=== PATIENT | female | born 1955 | race Caucasian/White ===

== ENCOUNTER 2019-02-25 13:37 | Emergency (ER) | payer MEDICARE ==
[2019-02-25 13:44] VITALS: BP 94/58
--- NOTE | 2019-02-25 13:52 | UC ---
Abdominal Pain Female HPI - HPI Summary HPI Summary: Patient presents with for vomiting and abdominal pain x5 days. She states she thinks she may have food poisoning from eating shrimp at the [employer] last Friday four hours before her symptoms started. Patient states her abdominal pain started first, which she described as a diffuse pain throughout her entire abdomen, front to back. She is unable to describe it but rates it as 8/10 initially and today is 5/10. She said the first three days she was vomiting "every half hour." Notes her vomiting stopped on Friday but she felt nauseous again yesterday, which was accompanied by chills. No further vomiting. Notes one episode of diarrhea last night. Otherwise normal BMs, just smaller. Has been unable to eat much other than watermelon, crackers, and sips of water since onset of symptoms. Notes fatigue. Denies fever. Denies constipation. Denies shortness of breath, wheezing, or difficulty breathing. Denies any abdominal surgeries. Denies taking any medications other than those for her diabetes. - History of Current Complaint Chief Complaint: UCAbdominalPain Stated Complaint: VOMITING Time Seen by Provider: 02/25/19 13:51 Hx Obtained From: Patient, Family/Impregnator - Onset/Duration: Lasting Days Timing: Constant Severity Initially: Severe Severity Currently: Moderate Pain Intensity: 6 Pain Scale Used: 0-10 Numeric Location: Diffuse Character: Unable to describe Aggravating Factor(s): Nothing Alleviating Factor(s): Nothing Allergies/Adverse Reactions: Allergies Allergy/AdvReac Type Severity Reaction Status Date / Time brimonidine [From Alphagan P] Allergy eye Verified 02/25/19 14:44 irritaion pilocarpine Allergy migraine Verified 02/25/19 14:44 ramipril Allergy Coughing Verified 02/25/19 14:44 PMH/Surg Hx/FS Hx/Imm Hx Endocrine History: Diabetes - Surgical History Surgical History: Yes Surgery Procedure, Year, and Place: 2004-TRABECU[place]OMIES [place] EYE[place] [place]. 2004- LEFT EYE [facility]- [facility]. 2011-CATARACT EXTRACTION BOTH EYES- [facility] [place]. 2011- [facility]RECTOMY RIGHT EYE- [facility]. RIGHT EYE 08/2015, [facility] [place]ABECULECTOMIE - Family History Known Family History: Positive: Unknown - Social History Alcohol Use: None Alcohol Amount: 2 ER WEEK Substance Use Type: None Smoking Status (MU): Never Smoked Tobacco Have You Smoked in the Last Year: No Review of Systems All Other Systems Reviewed And Are Negative: No Constitutional: Positive: Chills, Fatigue. Negative: Fever Eyes: Positive: Negative ENT: Positive: Negative Respiratory: Positive: Negative Cardiovascular: Positive: Negative Gastrointestinal: Positive: Abdominal Pain, Vomiting, Diarrhea, Nausea Genitourinary: Positive: Negative. Negative: Dysuria, Hematuria, Frequency, Urgency Neurological: Negative: Headache Physical Exam Triage Information Reviewed: Yes Appearance: Obese, Other: - appears fatigued Vital Signs: Initial Vital Signs Temp 98 F 02/25/19 13:41 Pulse 110 02/25/19 13:41 Resp 20 02/25/19 13:41 BP 94/58 02/25/19 13:41 Pulse Ox 99 02/25/19 13:41 Vital Signs Reviewed: Yes Eyes: Positive: Conjunctiva Clear Respiratory Exam: Normal Respiratory: Positive: Lungs clear, Normal breath sounds, No respiratory distress, No accessory muscle use Cardiovascular Exam: Normal Cardiovascular: Positive: Tachycardia Abdomen Description: Positive: Nontender, Soft. Negative: CVA Tenderness (R), CVA Tenderness (L), Distended, Guarding, McBurney's Point Tenderness Bowel Sounds: Positive: Present, Hypoactive Neurological: Positive: Fatigued Abd Pain Female Course/Dx - Course Course Of Treatment: Discussed with patient and her that it was in her best interest to be seen in the emergency room due to the concern for her lower blood pressure accompanied by her tachycardia. Explained to patient the ER would be able to do a more thorough work up, including any labs she may need, and that her safest option was to go directly to the ED from here. She was offered an ambulance but she and her decided to go in their private vehicle. Both patient and voiced understanding and agreed with plan to be seen in the ED. - Differential Dx/Diagnosis Provider Diagnosis: Abdominal pain Discharge ED - Sign-Out/Discharge Documenting (check all that apply): Patient Departure All imaging exams completed and their final reports reviewed: No Studies - Discharge Plan Condition: Stable Disposition: HOME-RECOMMEND TO ED Patient Education Materials: Abdominal Pain (ED) Referrals: Franklyn Murphy MD [Primary Care Provider] - Additional Instructions: Go directly to the emergency room for further evaluation and work up. - Billing Disposition and Condition Condition: STABLE Disposition: Home-Recommend to ED
== END 2019-02-25 14:19 | disposition home health service (06) ==
LOC: UCEAST 13:37
DX: R10.84 Generalized abdominal pain (principal); E11.9 Type 2 diabetes mellitus without complications
CPT/HCPCS: 99211; G0463

== ENCOUNTER 2019-02-25 14:39 | Inpatient (IN) | payer MEDICARE ==
[2019-02-25] MEDS ORDERED: NS 0.9% 1000 ML** 1,000 ML IV ONE ×2 (14:54→15:59)
--- NOTE | 2019-02-25 14:59 | ED ---
Complex/Multi-Sys Presentation - HPI Summary HPI Summary: 63 year old F presenting to [facility] from [facility] accompanied by complains of nausea, vomiting, diffuse abdominal pain, headache, and fatigue since Friday02/20/19 evening. Patient denies bloody stools. The patient rates the pain 3/10 in severity. Symptoms aggravated by nothing. Symptoms alleviated by nothing. Patient states she vomited multiple times Friday03/02/19 and Friday02/21/19, fewer times on Friday02/22/19, and stopped vomiting on 04/03. Patient states she had one episode of diarrhea. Patient states she does not feel nauseous now. Patient states her abdominal pain has subsided since Friday02/20/19. Patient states she has been drinking sips of Gatorade, water, tricia eloina, and diet Pepsi. Patient denies recent travel outside of the country or recent camping. Patient has Hx Type II diabetes. Patient states she has no Hx DKA. Patient denies abdominal surgeries. Patient denies alcohol, cigarette, and drug use. Medications reviewed. Allergies noted. - History Of Current Complaint Chief Complaint: EDNauseaVomitDiarrh Time Seen by Provider: 02/25/19 14:48 Hx Obtained From: Patient Onset/Duration: Lasting Days - 5, Still Present Timing: Constant Severity Currently: Mild Aggravating Factor(s): Nothing Alleviating Factor(s): Nothing Associated Signs And Symptoms: Positive: Other - NEG: bloody stools - Allergies/Home Medications Allergies/Adverse Reactions: Allergies Allergy/AdvReac Type Severity Reaction Status Date / Time brimonidine [From Alphagan P] Allergy eye Verified 02/25/19 14:44 irritaion pilocarpine Allergy migraine Verified 02/25/19 14:44 ramipril Allergy Coughing Verified 02/25/19 14:44 Home Medications: Home Medications Cholecalciferol (Vitamin D3) [Vitamin D3] 1,000 unit PO DAILY 02/25/19 [History Confirmed 02/25/19] Losartan TAB* [Cozaar TAB*] 100 mg PO DAILY 02/25/19 [History Confirmed 02/25/19 ] glipiZIDE TAB* [Glucotrol TAB*] 5 mg PO .OVERNIGHT 02/25/19 [History Confirmed 02/25/19] PMH/Surg Hx/FS Hx/Imm Hx Endocrine/Hematology History: Reports: Hx Diabetes - TYPE II- ON ORAL MEDICATION FOR, Hx Thyroid Disease - GRAVES DISEASE- NO MEDICATION FOR AT THIS TIME Cardiovascular History: Reports: Hx Hypertension - ON MEDICATION FOR Denies: Other Cardiovascular Problems/Disorders Respiratory History: Denies: Other Respiratory Problems/Disorders Musculoskeletal History: Reports: Hx Arthritis - SHOULDERS, Hx Tendonitis - LEFT SHOULDER Sensory History: Reports: Hx Cataracts - BETINA, Hx Glaucoma - BETINA Denies: Hx Contacts or Glasses, Hx Hearing Aid Opthamlomology History: Reports: Hx Cataracts - BETINA, Hx Glaucoma - BETINA Denies: Hx Contacts or Glasses Neurological History: Denies: Other Neuro Impairments/Disorders - Cancer History Hx Chemotherapy: No Hx Radiation Therapy: No - Surgical History Surgery Procedure, Year, and Place: 2004-[facility]OMIES [facility]YE[facility]. 2004- LEFT [facility]. 2011-CATARACT EXTRACTION BOTH EYES- [facility]. 2011- [facility]Y RIGHT [facility]YE- [facility]. RIGHT EYE 08/2015, [facility] TRABECULECTOMIE Hx Anesthesia Reactions: No Infectious Disease History: No Infectious Disease History: Denies: Traveled Outside the [place] in Last 30 Days - Family History Known Family History: Positive: Other - breast CA - Social History Alcohol Use: Weekly Alcohol Amount: 2 ER WEEK Hx Substance Use: No Substance Use Type: Reports: None Hx Tobacco Use: No Smoking Status (MU): Never Smoked Tobacco Have You Smoked in the Last Year: No Review of Systems Positive: Fatigue Positive: Abdominal Pain, Vomiting, Nausea, Other - NEG: bloody stools Positive: Headache All Other Systems Reviewed And Are Negative: Yes Physical Exam - Summary Physical Exam Summary: Constitutional: Well-developed, Well-nourished, Alert. (-) Distressed Skin: Warm, Dry HENT: Normocephalic; Atraumatic, Dry oral mucosa Eyes: Conjunctiva normal Neck: Musculoskeletal ROM normal neck. (-) JVD, (-) Stridor, (-) Tracheal deviation Cardio: Rhythm regular, tachycardia, Heart sounds normal; Intact distal pulses; The pedal pulses are 2+ and symmetric. Radial pulses are 2+ and symmetric. (-) Murmur Pulmonary/Chest wall: Effort normal. (-) Respiratory distress, (-) Wheezes, (-) Rales Abd: Soft, (-) tenderness, (-) Distension, (-) Guarding, (-) Rebound Musculoskeletal: (-) Edema Lymph: (-) Cervical adenopathy Neuro: Alert, Oriented x3 Psych: Mood and affect Normal Triage Information Reviewed: Yes Vital Signs On Initial Exam: Initial Vitals Temp Pulse Resp BP Pulse Ox 97.8 F 115 20 81/58 94 02/25/19 14:43 02/25/19 14:43 02/25/19 14:43 02/25/19 14:43 02/25/19 14:43 Vital Signs Reviewed: Yes Diagnostics - Vital Signs Vital Signs Temp Pulse Resp BP Pulse Ox 02/25/19 14:43 97.8 F 115 20 81/58 94 - Laboratory Result Diagrams: 02/25/19 15:27 02/25/19 15:27 Lab Statement: Any lab studies that have been ordered have been reviewed, and results considered in the medical decision making process. Re-Evaluation - Re-Evaluation First Eval Re-Evaluation Time: 15:21 Change: Unchanged Comment: IV established. repeat BP 120/60 Second Eval Re-Evaluation Time: 16:29 Change: Unchanged Comment: patient is agreeable to admission Complex Multi-Symp Course/Dx Course Of Treatment: Patient is here with severe dehydration. Patient has had vomiting since Friday and has felt overall weak. Patient has not been drinking a lot of fluids at home. Upon arrival, patient was tachycardic and hypotensive which improved with 2 L of IV fluids. Patient is found to be in history of present illness with a creatinine of 3.2 with her last being 0.75. Given patient's severe LYDIA, patient is admitted to the hospital for further management. - Diagnoses Provider Diagnoses: Hypotension, Tachycardia, LYDIA (acute kidney injury) - Physician Notifications Discussed Care Of Patient With: Shanel Gabriel Time Discussed With Above Provider: 16:28 Instructed by Provider To: Other - Dr. Gabriel, hospitalist, agrees to admit patient Discharge ED - Sign-Out/Discharge Documenting (check all that apply): Patient Departure - Admit Patient Received Moderate/Deep Sedation with Procedure: No - Discharge Plan Condition: Stable Disposition: ADMITTED TO [facility] - Billing Disposition and Condition Condition: STABLE Disposition: Admitted to [facility] - Attestation Statements Document Initiated by Scribe: Yes Documenting Scribe: Sherley Larson Provider For Whom Scribe is Documenting (Include Credential): Rony Galvez MD Scribe Attestation: I, Sherley Larson, scribed for Rony Galvez MD on 02/25/19 at 1823. Scribe Documentation Reviewed: Yes Provider Attestation: The documentation as recorded by the scribe, Sherley Larson accurately reflects the service I personally performed and the decisions made by me, Rony Galvez MD Status of Scribe Document: Viewed
[2019-02-25 15:31] LABS: Urine Appearance Turbid; Urine Bacteria 1+ (Absent); Urine Bilirubin 1+ (Negative); Urine Blood 2+ (Negative); Urine Color Amber; Urine Glucose 1+(50 mg/dL) (Negative); Urine Ketones Negative (Negative); Urine Nitrite Negative (Negative); Urine Protein 2+(100 mg/dL) (Negative); Urine Red Blood Cell 1+(3-5/hpf) (Absent); Urine Specific Gravity 1.021 (1.010-1.030); Urine Squamous Epithelial Cell Present (Absent); Urine Transitional Epithelial Present (Absent); Urine Urobilinogen Positive (Negative); Urine White Blood Cell 2+(11-20/hpf) (Absent)
[2019-02-25 15:38] LABS: ABS Eosinophils 0.1 10^3/ul (0-0.6); ABS Monocytes 0.8 10^3/ul (0-0.8); ABS Neutrophils 12.4 10^3/ul (1.5-7.7); Eosinophil % 0.9 %; Hematocrit 37 % (35-47); Hemoglobin 12.3 g/dL (12.0-16.0); Lymphocyte % 6.8 %; Mean Corpuscular HGB Conc 33 g/dL (31-36); Mean Corpuscular Hemoglobin 29 pg (27-31); Mean Corpuscular Volume 87 fL (80-97); Mean Platelet Volume 9.5 fL (7.4-10.4); Nucleated Red Blood Cells % 0.1; Platelet Count 201 10^3/uL (150-450); Red Blood Count 4.24 10^6 /uL (3.70-4.87); Red Cell Distribution Width 15 % (10-15); White Blood Count 14.4 10^3/uL (3.5-10.8)
[2019-02-25 16:00] LABS: Albumin/Globulin Ratio 0.9 (1-3); BUN/Creatinine Ratio 14.6 (8-20); Calcium 8.4 mg/dL (8.6-10.3); EGFR African American 17.7 (>60); EGFR Non-African American 14.6 (>60); Globulin 3.3 g/dL (2-4); Magnesium 1.8 mg/dL (1.9-2.7); Potassium 3.5 mmol/L (3.5-5.0); Total Bilirubin 0.6 mg/dL (0.2-1.0); Total Protein 6.3 g/dL (6.4-8.9)
[2019-02-25] MEDS ORDERED: Ondansetron INJ* 2 MG/ML VIAL IV PRN (17:30)
[2019-02-25] MEDS ORDERED: Acetaminophen TAB* 325 MG PO PRN (17:30)
[2019-02-25] MEDS ORDERED: Dextrose 50% VIAL 50 ml IV PUSH PRN (17:35)
[2019-02-25] MEDS ORDERED: Magnesium Sulfate 2 GM IV* 2 GM/50 ML BAG IVPB ONE (17:53)
--- NOTE | 2019-02-25 19:33 | HP ---
CC: Franklyn Murphy MD * HISTORY AND PHYSICAL: DATE OF ADMISSION: 02/25/19 PRIMARY CARE PROVIDER: Franklyn Murphy MD. ATTENDING PHYSICIAN: Shanel Gabriel MD * (dictated by DA Robledo). CHIEF COMPLAINT: 1. Nausea, vomiting, and abdominal pain. 2. Headache. HISTORY OF PRESENT ILLNESS: Ms. Tapia is a 63-year-old female with a past medical history of diabetes and hypertension who presented to the ER today with complaints of nausea, vomiting, diarrhea, abdominal pain, and headache. The patient states that 5 days ago she went to a [employer] buffet. Three hours after this, she started to develop nausea and vomiting, which lasted 3 days. She also notes on day 3, she had diarrhea throughout the day. She complained of diffuse abdominal pain for the first 3 days. During this time, she has had decreased appetite, decreased p.o. intake of both solid foods and liquids. For the last 2 days, she has had nausea and headache without vomiting. She is tolerating oral intake, but only small amounts. She is drinking 1 to 2 cups of fluids per day. She is trying to drink fluids with electrolytes, but does note that she has had water and Diet Pepsi as well as broth and Gatorade. She complains of fatigue. She has had no bowel movements for the last 2 days. She denies dizziness and lightheadedness. She denies melena, hematochezia, and hematemesis. Her abdominal pain has resolved and she denies flank pain. She denies recent travel, ill contacts, recent camping, and recent ingestion of untreated water. She has had no recent antibiotics. She does note that she used ibuprofen x2 yesterday; prior to that, last use was approximately 2 weeks ago. She complains of sore throat and dry mouth. She does note that she had chills last night and sweats this morning, both of which have resolved. She denies fever. She denies vision changes, difficulty swallowing, cough, fever, chest pain, shortness of breath, myalgias, or arthralgias. While in the emergency department, the patient received a full workup and was noted to have leukocytosis and tachycardia as well as an initial bout of hypotension that responded to IV fluid bolus. She has an elevated creatinine and hypomagnesemia. Urinalysis revealed 2+ LE, 2+ blood, positive bacteria. She received 2 L of normal saline while in the ER. The hospitalist team was asked to further evaluate the patient for admission. PAST MEDICAL HISTORY: 1. Diabetes mellitus type 2. 2. Hypertension. 3. Bilateral glaucoma. PAST SURGICAL HISTORY: Bilateral eye trabeculectomies, bilateral cataracts. HOME MEDICATIONS: 1. Aspirin 81 mg p.o. daily. 2. Cholecalciferol 1000 units p.o. daily. 3. Cyanocobalamin 1000 mcg p.o. daily. 4. Cosopt 1 drop right eye b.i.d. 5. Glipizide 5 mg p.o. q.a.m., 10 mg p.o. q.p.m., 5 mg p.o. overnight. 6. Losartan 100 mg p.o. daily. 7. Metformin 1000 mg p.o. b.i.d. 8. Simvastatin 20 mg p.o. daily. DRUG ALLERGIES: BRIMONIDINE, eye irritation; PILOCARPINE, migraine; RAMIPRIL, cough. FAMILY HISTORY: Mother and father both had valve replacement. Sister had "valve issue." Mother from Alzheimer's. Father is alive and healthy at the age of 87. Paternal grandfather of an [place]. Paternal and maternal grandparents both had diabetes mellitus. SOCIAL HISTORY: The patient does not smoke. She rarely drinks, having approximately 1 glass of wine per month. She is disabled due to glaucoma. She previously worked in [employer]. She is . She lives alone with her and they have no children. In the event that she is unable to make her own medical decisions, she has appointed her , Mukund Tapia, to be her surrogate decision maker. REVIEW OF SYSTEMS: A 14-point review of systems has been performed, and all the pertinent positives and negatives are in the HPI. All other systems are negative. PHYSICAL EXAMINATION GENERAL: Ms. Tapia is a well-developed, well-nourished, extremely obese white middle-aged female who is sitting up in bed. She appears fatigued, but in no acute distress. VITAL SIGNS: Temperature 97.8 temporal, heart rate 97, respiratory rate 20, oxygen saturation 96% on room air, blood pressure 106/59. HEENT: Visual villarreal grossly intact. PERRL. EOMI. Nonicteric sclerae. Hearing grossly intact. Oral mucous membranes are dry. There are no lesions. The pharynx is clear. RESPIRATORY: Symmetrical chest expansion without use of accessory muscles. Lungs are clear to auscultation bilaterally without rhonchi, wheezes, or rubs. There is no digital clubbing or cyanosis. CARDIOVASCULAR: Mild tachycardic rate with regular rhythm. S1, S2 present without murmurs, rubs, clicks, or gallops. There is no JVD. There is no peripheral edema. Radial and pedal pulses are palpable. ABDOMEN: Obese. Bowel sounds are hypoactive throughout. The abdomen is soft and nontender to palpation. There is no apparent hepatosplenomegaly, although difficult to assess due to body habitus. No CVA tenderness. MUSCULOSKELETAL: Full range of motion without pain or deformities. NEURO: The patient is awake. She is alert and oriented x3 with cranial nerves grossly intact. She is able to move all her extremities with a motor strength of 5/5 in bilateral upper and lower extremities. DIAGNOSTIC STUDIES/LAB DATA: WBC 14.4. Sodium 134, anion gap 12, BUN 47, creatinine 3.22, glucose 398, lactic acid 1.6, calcium 8.4, magnesium 1.8. ASSESSMENT AND PLAN: Ms. Tapia is a 63-year-old female with a past medical history of diabetes and hypertension who presented to the ER with complaints of vomiting and abdominal pain that started 5 days ago and lasted 3 days with residual nausea and headache. She was found to meet sepsis criteria. She will be admitted to observation for: 1. Sepsis. The patient presents with tachycardia and leukocytosis. She also had hypotension initially which responded well to IV fluid bolus. The likely source of infection is gastrointestinal in nature, although it is possible that it could be urinary. The patient presented with vomiting and diarrhea x3 days, now with nausea, decreased p.o. intake. She has no urinary symptoms, but does have urinalysis with 2+ LE, 2+ blood, and positive bacteria. We will admit her and continue her on IV fluids at a rate of 125 cc per hour. Zofran has been ordered. She has been tolerating p.o. intake, so we will start her on a clear liquid diet with instructions to advance as tolerated, low-residue diet. I do not believe that there is any need for antibiotics for gastrointestinal infection at this point in time. 2. Urinary tract infection. The patient's urinalysis reveals 2+ blood, 2+ LE, 1+ bacteria. She denies urinary symptoms and no CVA tenderness. She is septic and therefore, we will start her on ceftriaxone and await culture for further antibiotic decisions. 3. Acute kidney injury. The patient has a creatinine elevated to 3.22. This is likely in the setting of hypovolemia due to decreased fluid intake, vomiting , and diarrhea. She has been given 2 L IV fluid bolus in the ER. We will continue her on IV fluid normal saline 125 cc per hour and recheck creatinine in the morning. We will also hold her losartan and metformin at this time. 4. Diabetes mellitus. Hold metformin and glipizide. We will start lispro sliding scale a.c. with fingerstick checks a.c. 5. Hyperlipidemia. Continue atorvastatin. 6. DVT prophylaxis. According to DVT Risk Assessment, the patient scores 3, placing her at high risk. She will be started on heparin. 7. Code status. Full code. TIME SPENT: Approximately 60 minutes were spent on this admission, greater than half that time was spent [id number] with the patient and her obtaining history, performing physical, and reviewing the plan of care. The case has been reviewed with my attending, Dr. Gabriel, who is in agreement with the plan of care. DA ROBLEDO [id number]/[facility] #: [id number] VAIBHAV
[2019-02-25] MEDS: Aspirin EC TAB* 81 MG TAB.EC PO SCH (20:24)
[2019-02-25] MEDS: Insulin LISPRO* 1 UNITS UNIT SUBCUT SCH (20:37)
[2019-02-25] MEDS: Heparin VIAL(*) 5000 UNITS/ML VIAL (FIVE THOUSAND) SUBCUT SCH (22:24)
[2019-02-25] MEDS: CMCS:Dorzolamide/Timolol OPTH (NF) 10 ML BOT RIGHT EYE SCH (22:24)
[2019-02-25] MEDS: cefTRIAXone(*) 1 GM in NS 0.9% 50 ML* 50 ML IVPB SCH (22:38)
[2019-02-25] MEDS: NS 0.9% 1000 ML** 1,000 ML IV SCH (23:47)
[2019-02-26] MEDS: NS 0.9% 1000 ML** 1,000 ML IV SCH ×2 (04:11→12:57)
[2019-02-26] MEDS: Heparin VIAL(*) 5000 UNITS/ML VIAL (FIVE THOUSAND) SUBCUT SCH ×3 (05:19→22:18)
--- NOTE | 2019-02-26 08:15 | PN ---
Subjective - Subjective Reason for Note: Progress Note History: Irma Tapia is a primary care patient at [facility]. I have obtained her presentation from the patient and from DA Stokes's detailed history and physical. She times the onset of this illness to eating at a [employer] restaurant. She developed severe abdominal pain, nausea and vomiting. She had one bout of diarrhea, but no more. She became severely dehydrated. Today she is feeling much improved after intravenous fluids. She no longer has nausea and vomiting. She is hungry. Her abdominal pain has gone. She has a small BM last night She continues to have a headache and some neck pain, but no stiffness or photophobia. Active Problems: Active Problems Abdominal pain (Acute) R10.9 Nausea and vomiting (Acute) R11.2 Prerenal acute renal failure (Acute) N17.9 Type 2 diabetes mellitus with hyperglycemia (Acute) E11.65 Essential hypertension (Chronic) I10 Glaucoma, open angle (Chronic) H40.10X0 History of Graves' disease (Chronic) Z86.39 Hyperlipidemia (Chronic) E78.5 Microalbuminuria (Chronic) R80.9 Morbid obesity with BMI of 50.0-59.9, adult (Chronic) E66.01, Z68.43 Type 2 diabetes mellitus with proliferative diabetic retinopathy (Chronic) E11.3599 Current Medications: Current Medications Acetaminophen (Tylenol Tab*) 650 mg PO Q4H PRN PRN Reason: HEADACHE Aspirin (Aspirin Ec Tab*) 81 mg PO BEDTIME [facility] Last Admin: 02/25/19 20:24 Dose: 81 mg Atorvastatin Calcium (Lipitor*) 10 mg PO DAILY [facility] Cholecalciferol (Vitamin D Tab*) 1,000 units PO DAILY [facility] Cyanocobalamin (Vitamin B12 Tab*) 1,000 mcg PO DAILY [facility] Dextrose (Dextrose 50% Vial 50 Ml*) 25 ml IV PUSH .FOR FS < 60 - SS PRN PRN Reason: FS < 60 Dorzolamide/Timolol (Cosopt (Nf)) 1 drop RIGHT EYE BID [facility]; Protocol Last Admin: 02/25/19 22:24 Dose: 1 drop Heparin Sodium (Porcine) (Heparin Vial(*)) 5,000 units SUBCUT Q8HR [facility] Last Admin: 02/26/19 05:19 Dose: 5,000 units Sodium Chloride (Ns 0.9% 1000 Ml) 1,000 mls @ 125 mls/hr IV PER RATE [facility] Last Admin: 02/26/19 04:11 Dose: 125 mls/hr Ceftriaxone Sodium 1 gm/ (Sodium Chloride) 50 mls @ 100 mls/hr IVPB Q24H [facility] Last Admin: 02/25/19 22:38 Dose: 100 mls/hr Insulin Human Lispro (Humalog*) 0 units SUBCUT AC [facility]; Protocol Last Admin: 02/25/19 20:37 Dose: 9 units Ondansetron HCl (Zofran Inj*) 4 mg IV Q4H PRN PRN Reason: NAUSEA/VOMITING - Review of Systems Constitutional Symptoms: Yes: Fever, No: Night Sweats, Unexplained Falls Dermatology: Rash: No Thyroid: Positive: Goiter, Thyroid Nodule Pulmonary: Negative: Cough, Sputum, Hemoptysis, Respiratory Distress, Shortness of Breath Cardiology: Negative: Chest Pain, Palpitations, Swelling of Ankles Gastroenterology: Positive: Constipation Negative: Abdominal Pain, Nausea, Vomiting, Heartburn Genital - Urinary: Negative: Dysuria, Polyuria Endocrinology: Positive: Thyroid Problems, Obesity, Diabetes Mellitus Neurology: Positive: Headache, Dizziness Negative: Change in Vision Psychiatry: Positive: Normal Home Medications: Home Medications Medication Instructions Recorded Confirmed Type Aspirin EC TAB* [Ecotrin EC Low 81 mg PO BEDTIME 08/10/15 02/25/19 History Dose*] Cyanocobalamin TAB* [Vitamin B12 1,000 mcg PO DAILY 08/10/15 02/25/19 History TAB*] Dorzolamide/Timolol OPTH (NF) 1 drop RIGHT EYE BID 08/10/15 02/25/19 History [Cosopt (NF)] Simvastatin TAB(NF) [Zocor(NF)] 20 mg PO DAILY 08/10/15 02/25/19 History glipiZIDE TAB* [Glucotrol TAB*] 5 mg PO QAM 08/10/15 02/25/19 History glipiZIDE TAB* [Glucotrol TAB*] 10 mg PO QPM 08/10/15 02/25/19 History metFORMIN* [Glucophage*] 1,000 mg PO BID 08/10/15 02/25/19 History Cholecalciferol (Vitamin D3) 1,000 unit PO DAILY 02/25/19 02/25/19 History [Vitamin D3] Losartan TAB* [Cozaar TAB*] 100 mg PO DAILY 02/25/19 02/25/19 History glipiZIDE TAB* [Glucotrol TAB*] 5 mg PO .OVERNIGHT 02/25/19 02/25/19 History Allergies: Allergies Allergy/AdvReac Type Severity Reaction Status Date / Time brimonidine [From Alphagan P] Allergy eye Verified 02/25/19 14:44 irritaion pilocarpine Allergy migraine Verified 02/25/19 14:44 ramipril Allergy Coughing Verified 02/25/19 14:44 Objective - Vital Signs Vital Signs: Vital Signs 02/25/19 02/25/19 02/25/19 14:43 15:14 15:16 Temperature 97.8 F Pulse Rate 115 110 107 Respiratory 20 Rate Blood Pressure 81/58 121/61 (mmHg) O2 Sat by Pulse 94 97 96 Oximetry 02/25/19 02/25/19 02/25/19 15:44 16:00 16:14 Temperature Pulse Rate 100 97 97 Respiratory Rate Blood Pressure 104/56 106/59 (mmHg) O2 Sat by Pulse 91 94 96 Oximetry 02/25/19 02/25/19 02/25/19 16:44 17:00 17:14 Temperature Pulse Rate 101 96 96 Respiratory Rate Blood Pressure 116/58 109/63 (mmHg) O2 Sat by Pulse 94 95 96 Oximetry 02/25/19 02/25/19 02/25/19 17:45 18:00 18:15 Temperature Pulse Rate 97 99 98 Respiratory Rate Blood Pressure 104/50 (mmHg) O2 Sat by Pulse 94 97 96 Oximetry 02/25/19 02/25/19 02/25/19 18:31 18:32 18:44 Temperature 97.9 F 97.7 F Pulse Rate 98 98 Respiratory 16 16 Rate Blood Pressure 104/50 104/43 88/52 (mmHg) O2 Sat by Pulse 96 98 Oximetry 02/25/19 02/25/19 02/25/19 19:00 19:14 23:43 Temperature 98.7 F Pulse Rate 98 94 93 Respiratory 18 Rate Blood Pressure 94/59 105/51 (mmHg) O2 Sat by Pulse 96 95 97 Oximetry 02/26/19 03:28 Temperature 98.6 F Pulse Rate 94 Respiratory 18 Rate Blood Pressure 107/51 (mmHg) O2 Sat by Pulse 96 Oximetry - Intake and Output Intake and Output: Intake & Output 02/23/19 02/24/19 02/25/19 02/26/19 11:59 11:59 11:59 11:59 Intake Total 2122.4 Balance 2122.4 Weight 314 lb Intake: IV Fluids 1062.4 IVPB 100 Oral 960 ADLs: Meal Record Start: 02/25/19 18: 32 Freq: DAILY@0900,1400,1800 Status: Active Protocol: Created 02/25/19 18:32 System (Rec: 02/25/19 18:32 System [id number]) Intake and Output Start: 02/25/19 14: 47 Freq: Status: Active Protocol: Created 02/25/19 14:48 System (Rec: 02/25/19 14:48 System [id number]) Intake and Output Start: 02/25/19 18: 32 Freq: DAILY@0600,1400,2200 Status: Active Protocol: Created 02/25/19 18:32 System (Rec: 02/25/19 18:32 System [id number]) Document 02/25/19 21:47 [id number] (Rec: 02/25/19 21:49 [id number]) Document 02/26/19 06:00 [id number] (Rec: 02/26/19 06:02 [id number] TELE-C09) Document 02/26/19 06:00 [id number] (Rec: 02/26/19 06:01 [id number]) - Physical Exam General Physical Exam Comment: Her mucus membranes remain dry. She is alert and oriented, hemodynamically stable and able to give a good account of herself General: No Cyanosis, No Anemia, No Jaundice, No Clubbing Eye Exam: bilateral: EOMI Skin: Normal: Rash Endocrine: Yes Central Obesity, No Hirsuitism, No Virilism, No Acromegaly, No Vitiligo, No Flushing, No Acanthosis nigricans, No Violaceious striae, No [place] Syndrome Lungs and Chest: Yes: Chest Expansion Full, Chest Expansion Symetrica, Percussion Note Resonant, Vessicular Breath Sounds. No: Crackles, Wheezes Heart Rate and Rhythm: Regular JVP: Not Elevated Additional Cardiovascular: Yes: Normal Heart Sounds. No: Heart Murmur, Pedal Edema Abdominal Exam: Yes: Soft. No: Distention, Abdominal Mass, Hepatomegaly, Splenomegaly, Abdominal Tenderness, Guarding, Rebound Tenderness, Bowel Sounds Present - diminished, but persent - Extremities Cranial Nerves II-XII Intact: Yes Limbs: Normal Power, Normal Tone, Normal Coordination - Neuro Orientation: A/O x3 Psychiatric: Normal Speech: Normal Results - Results Lab Results: Laboratory Results - last 24 hr 02/25/19 02/25/19 02/25/19 15:15 15:27 15:27 WBC 14.4 H RBC 4.24 Hgb 12.3 Hct 37 MCV 87 MCH 29 MCHC 33 RDW 15 Plt Count 201 MPV 9.5 Neut % (Auto) 86.3 Lymph % (Auto) 6.8 [place] % (Auto) 5.8 Eos % (Auto) 0.9 Baso % (Auto) 0.2 Absolute Neuts (auto) 12.4 H Absolute Lymphs (auto) 1.0 Absolute Monos (auto) 0.8 Absolute Eos (auto) 0.1 Absolute Basos (auto) 0.0 Absolute Nucleated RBC 0.0 Nucleated RBC % 0.1 VBG pH VBG pCO2 VBG pO2 VBG HCO3 VBG O2 Saturation VBG Base Excess Sodium 134 L Potassium 3.5 Chloride 102 Carbon Dioxide 20 L Anion Gap 12 H BUN 47 H Creatinine 3.22 H Est GFR ( Amer) 17.7 Est GFR (Non-Af Amer) 14.6 BUN/Creatinine Ratio 14.6 Glucose 398 H POC Glucose (mg/dL) Lactic Acid Calcium 8.4 L Magnesium 1.8 L Total Bilirubin 0.60 AST 19 ALT 18 Alkaline Phosphatase 160 H Total Protein 6.3 L Albumin 3.0 L Globulin 3.3 Albumin/Globulin Ratio 0.9 L Lipase 13 Urine Color Aliza Urine Appearance Turbid Urine pH 5.0 Ur Specific [place] 1.021 Urine Protein 2+(100 mg/dl) A Urine Ketones Negative Urine Blood 2+ A Urine Nitrate Negative Urine Bilirubin 1+ A Urine Urobilinogen Positive A Ur Leukocyte Esterase 2+ A Urine WBC (Auto) 2+(11-20/hpf) A Urine RBC (Auto) 1+(3-5/hpf) A Ur Squamous Epith Cells Present A Ur Transition Epith Cell Present A Urine Bacteria 1+ A Hyaline Casts Present A Urine Glucose 1+(50 mg/dl) A 02/25/19 02/25/19 02/25/19 15:27 15:27 20:29 WBC RBC Hgb Hct MCV MCH MCHC RDW Plt Count MPV Neut % (Auto) Lymph % (Auto) [place] % (Auto) Eos % (Auto) Baso % (Auto) Absolute Neuts (auto) Absolute Lymphs (auto) Absolute Monos (auto) Absolute Eos (auto) Absolute Basos (auto) Absolute Nucleated RBC Nucleated RBC % VBG pH 7.38 VBG pCO2 32 L VBG pO2 55.0 H VBG HCO3 20.7 L VBG O2 Saturation 90.9 H VBG Base Excess -5.2 L Sodium Potassium Chloride Carbon Dioxide Anion Gap BUN Creatinine Est GFR ( Amer) Est GFR (Non-Af Amer) BUN/Creatinine Ratio Glucose POC Glucose (mg/dL) 270 H Lactic Acid 1.6 Calcium Magnesium Total Bilirubin AST ALT Alkaline Phosphatase Total Protein Albumin Globulin Albumin/Globulin Ratio Lipase Urine Color Urine Appearance Urine pH Ur Specific [place] Urine Protein Urine Ketones Urine Blood Urine Nitrate Urine Bilirubin Urine Urobilinogen Ur Leukocyte Esterase Urine WBC (Auto) Urine RBC (Auto) Ur Squamous Epith Cells Ur Transition Epith Cell Urine Bacteria Hyaline Casts Urine Glucose 02/26/19 07:10 WBC RBC Hgb Hct MCV MCH MCHC RDW Plt Count MPV Neut % (Auto) Lymph % (Auto) [place] % (Auto) Eos % (Auto) Baso % (Auto) Absolute Neuts (auto) Absolute Lymphs (auto) Absolute Monos (auto) Absolute Eos (auto) Absolute Basos (auto) Absolute Nucleated RBC Nucleated RBC % VBG pH VBG pCO2 VBG pO2 VBG HCO3 VBG O2 Saturation VBG Base Excess Sodium Potassium Chloride Carbon Dioxide Anion Gap BUN Creatinine Est GFR ( Amer) Est GFR (Non-Af Amer) BUN/Creatinine Ratio Glucose POC Glucose (mg/dL) 210 H Lactic Acid Calcium Magnesium Total Bilirubin AST ALT Alkaline Phosphatase Total Protein Albumin Globulin Albumin/Globulin Ratio Lipase Urine Color Urine Appearance Urine pH Ur Specific [place] Urine Protein Urine Ketones Urine Blood Urine Nitrate Urine Bilirubin Urine Urobilinogen Ur Leukocyte Esterase Urine WBC (Auto) Urine RBC (Auto) Ur Squamous Epith Cells Ur Transition Epith Cell Urine Bacteria Hyaline Casts Urine Glucose Assessment - Problem List Assessment: Patient Problems Abdominal pain (Acute) Nausea and vomiting (Acute) Prerenal acute renal failure (Acute) Type 2 diabetes mellitus with hyperglycemia (Acute) Essential hypertension (Chronic) Glaucoma, open angle (Chronic) History of Graves' disease (Chronic) Hyperlipidemia (Chronic) Microalbuminuria (Chronic) Morbid obesity with BMI of 50.0-59.9, adult (Chronic) Type 2 diabetes mellitus with proliferative diabetic retinopathy (Chronic) Plan: Abdominal pain (Acute)Nausea and vomiting (Acute) Prerenal acute renal failure ( Acute) She developed severe abdominal pain, nausea and vomiting and this persisted for a 5 day period. She developed acute pre-renal failure. She had a raised WBC at presentation and her %Neuts were at the upper end of the reference range. It appears that the acute gastroenteritis has abated, but she is left with severe pre-renal azotemia. We have administered IVF. Today's labs are pending - she has some underlying diabetic nephropathy, so it will important to watch her renal function to determine if she has developed any acute tubular necrosis. She doesn't require antibacterials or other treatment for the GI tract as appears to be spontaneously resolving Type 2 diabetes mellitus with hyperglycemia (Acute) I will give her insulin therapy - basal and bolus - during this time of increased insulin resistance. I will delay re-instating her metformin until her renal function has improved Secondary diagnoses: Essential hypertension (Chronic) Glaucoma, open angle (Chronic) History of Graves' disease (Chronic) Hyperlipidemia (Chronic) Microalbuminuria (Chronic) Morbid obesity with BMI of 50.0-59.9, adult (Chronic) Type 2 diabetes mellitus with proliferative diabetic retinopathy (Chronic) I discussed the above with the patient and she agrees with the management plan.
[2019-02-26] MEDS ORDERED: Dextrose 50% VIAL 50 ml IV PUSH PRN (08:33)
[2019-02-26 08:37] LABS: ABS Eosinophils 0.2 10^3/ul (0-0.6); ABS Lymphocytes 1.4 10^3/ul (1.0-4.8); ABS Monocytes 1.4 10^3/ul (0-0.8); ABS Neutrophils 9.5 10^3/ul (1.5-7.7); Eosinophil % 1.6 %; Hematocrit 34 % (35-47); Hemoglobin 11.4 g/dL (12.0-16.0); Lymphocyte % 11.2 %; Mean Corpuscular HGB Conc 34 g/dL (31-36); Mean Corpuscular Hemoglobin 29 pg (27-31); Mean Corpuscular Volume 86 fL (80-97); Mean Platelet Volume 9.7 fL (7.4-10.4); Platelet Count 188 10^3/uL (150-450); Red Blood Count 3.91 10^6 /uL (3.70-4.87); Red Cell Distribution Width 15 % (10-15); White Blood Count 12.5 10^3/uL (3.5-10.8)
[2019-02-26 08:41] LABS: Albumin 2.8 g/dL (3.2-5.2); Albumin/Globulin Ratio 0.9 (1-3); BUN/Creatinine Ratio 23.1 (8-20); Calcium 8.4 mg/dL (8.6-10.3); EGFR African American 27.3 (>60); EGFR Non-African American 22.6 (>60); Globulin 3.2 g/dL (2-4); Potassium 3.2 mmol/L (3.5-5.0); Total Bilirubin 0.3 mg/dL (0.2-1.0)
[2019-02-26] MEDS: CMCS:Dorzolamide/Timolol OPTH (NF) 10 ML BOT RIGHT EYE SCH ×2 (08:56→20:29)
[2019-02-26] MEDS: Cholecalciferol TAB* 1000 UNITS PO SCH (08:56)
[2019-02-26] MEDS: Atorvastatin* 10 MG TAB PO SCH (08:56)
[2019-02-26] MEDS: Cyanocobalamin TAB* 500 MCG PO SCH (08:56)
[2019-02-26] MEDS: Insulin LISPRO* 1 UNITS UNIT SUBCUT SCH ×5 (08:57→17:57)
[2019-02-26] MEDS: Insulin GLARGINE(*) 1 UNITS UNIT SUBCUT SCH (08:57)
[2019-02-26 09:10] LABS: TSH (Thyroid Stimulating Horm) 4.69 mcIU/mL (0.34-5.60)
[2019-02-26] MEDS: Aspirin EC TAB* 81 MG TAB.EC PO SCH (20:29)
[2019-02-26] MEDS: cefTRIAXone(*) 1 GM in NS 0.9% 50 ML* 50 ML IVPB SCH (20:29)
[2019-02-27] MEDS: Heparin VIAL(*) 5000 UNITS/ML VIAL (FIVE THOUSAND) SUBCUT SCH ×3 (06:03→21:14)
[2019-02-27 07:04] LABS: ABS Basophils 0.1 10^3/ul (0-0.2); ABS Eosinophils 0.2 10^3/ul (0-0.6); ABS Lymphocytes 2.2 10^3/ul (1.0-4.8); ABS Monocytes 1.3 10^3/ul (0-0.8); Eosinophil % 1.5 %; Hematocrit 36 % (35-47); Hemoglobin 12.3 g/dL (12.0-16.0); Lymphocyte % 17.4 %; Mean Corpuscular HGB Conc 34 g/dL (31-36); Mean Corpuscular Hemoglobin 29 pg (27-31); Mean Corpuscular Volume 86 fL (80-97); Platelet Count 214 10^3/uL (150-450); Red Blood Count 4.21 10^6 /uL (3.70-4.87); Red Cell Distribution Width 15 % (10-15); White Blood Count 12.9 10^3/uL (3.5-10.8)
[2019-02-27 07:47] LABS: Calcium 8.8 mg/dL (8.6-10.3); Indirect Bilirubin 0.2 mg/dL (0.3-1.0); Potassium 3.2 mmol/L (3.5-5.0); Total Bilirubin 0.3 mg/dL (0.2-1.0)
[2019-02-27 07:53] LABS: Albumin/Globulin Ratio 0.9 (1-3); BUN/Creatinine Ratio 29.1 (8-20); C Reactive Protein 195.26 mg/L (<8.01); EGFR African American 61.1 (>60); EGFR Non-African American 50.5 (>60); Globulin 3.4 g/dL (2-4); Total Protein 6.4 g/dL (6.4-8.9)
[2019-02-27] MEDS: CMCS:Dorzolamide/Timolol OPTH (NF) 10 ML BOT RIGHT EYE SCH ×2 (08:47→21:12)
[2019-02-27] MEDS: Atorvastatin* 10 MG TAB PO SCH (08:47)
[2019-02-27] MEDS: Cyanocobalamin TAB* 500 MCG PO SCH (08:48)
[2019-02-27] MEDS: Cholecalciferol TAB* 1000 UNITS PO SCH (08:48)
[2019-02-27] MEDS: Insulin LISPRO* 1 UNITS UNIT SUBCUT SCH ×6 (08:48→17:27)
[2019-02-27] MEDS: Insulin GLARGINE(*) 1 UNITS UNIT SUBCUT SCH (08:49)
--- NOTE | 2019-02-27 09:44 | PN ---
Subjective - Subjective Reason for Note: Progress Note History: Irma Tapia is feeling much improved. Yesterday, she progressed her diet and felt no nausea or vomiting. She was able to walk around the [place], but felt weak and tired. She denies fever or sweats. She has had no abdominal pain and is having small bowel movements. She is demonstrating marked insulin resistance - this is unusual for her. She continues to be hyperglycemic - she is surprised by this. Active Problems: Active Problems Abdominal pain (Acute) R10.9 Nausea and vomiting (Acute) R11.2 Prerenal acute renal failure (Acute) N17.9 Type 2 diabetes mellitus with hyperglycemia (Acute) E11.65 UTI (urinary tract infection) (Acute) Essential hypertension (Chronic) I10 Glaucoma, open angle (Chronic) H40.10X0 History of Graves' disease (Chronic) Z86.39 Hyperlipidemia (Chronic) E78.5 Microalbuminuria (Chronic) R80.9 Morbid obesity with BMI of 50.0-59.9, adult (Chronic) E66.01, Z68.43 Type 2 diabetes mellitus with proliferative diabetic retinopathy (Chronic) E11.3599 Current Medications: Current Medications Acetaminophen (Tylenol Tab*) 650 mg PO Q4H PRN PRN Reason: HEADACHE Aspirin (Aspirin Ec Tab*) 81 mg PO BEDTIME [facility] Last Admin: 02/26/19 20:29 Dose: 81 mg Atorvastatin Calcium (Lipitor*) 10 mg PO DAILY [facility] Last Admin: 02/27/19 08:47 Dose: 10 mg Cholecalciferol (Vitamin D Tab*) 1,000 units PO DAILY [facility] Last Admin: 02/27/19 08:48 Dose: 1,000 units Cyanocobalamin (Vitamin B12 Tab*) 1,000 mcg PO DAILY [facility] Last Admin: 02/27/19 08:48 Dose: 1,000 mcg Dextrose (Dextrose 50% Vial 50 Ml*) 25 ml IV PUSH .FOR FS < 60 - SS PRN PRN Reason: FS < 60 Dorzolamide/Timolol (Cosopt (Nf)) 1 drop RIGHT EYE BID [facility]; Protocol Last Admin: 02/27/19 08:47 Dose: 1 drop Heparin Sodium (Porcine) (Heparin Vial(*)) 5,000 units SUBCUT Q8HR [facility] Last Admin: 02/27/19 06:03 Dose: 5,000 units Ceftriaxone Sodium 1 gm/ (Sodium Chloride) 50 mls @ 100 mls/hr IVPB Q24H [facility] Last Admin: 02/26/19 20:29 Dose: 100 mls/hr Insulin Glargine (Lantus(*)) 24 units SUBCUT Q24H [facility] Last Admin: 02/27/19 08:49 Dose: 24 units Insulin Human Lispro (Humalog*) 0 units SUBCUT AC [facility]; Protocol Last Admin: 02/27/19 08:48 Dose: 6 units Insulin Human Lispro (Humalog*) 0 units SUBCUT AC [facility]; Protocol Last Admin: 02/27/19 08:49 Dose: 3 units Ondansetron HCl (Zofran Inj*) 4 mg IV Q4H PRN PRN Reason: NAUSEA/VOMITING Home Medications: Home Medications Medication Instructions Recorded Confirmed Type Aspirin EC TAB* [Ecotrin EC Low 81 mg PO BEDTIME 08/10/15 02/25/19 History Dose*] Cyanocobalamin TAB* [Vitamin B12 1,000 mcg PO DAILY 08/10/15 02/25/19 History TAB*] Dorzolamide/Timolol OPTH (NF) 1 drop RIGHT EYE BID 08/10/15 02/25/19 History [Cosopt (NF)] Simvastatin TAB(NF) [Zocor(NF)] 20 mg PO DAILY 08/10/15 02/25/19 History glipiZIDE TAB* [Glucotrol TAB*] 5 mg PO QAM 08/10/15 02/25/19 History glipiZIDE TAB* [Glucotrol TAB*] 10 mg PO QPM 08/10/15 02/25/19 History metFORMIN* [Glucophage*] 1,000 mg PO BID 08/10/15 02/25/19 History Cholecalciferol (Vitamin D3) 1,000 unit PO DAILY 02/25/19 02/25/19 History [Vitamin D3] Losartan TAB* [Cozaar TAB*] 100 mg PO DAILY 02/25/19 02/25/19 History glipiZIDE TAB* [Glucotrol TAB*] 5 mg PO .OVERNIGHT 02/25/19 02/25/19 History Allergies: Allergies Allergy/AdvReac Type Severity Reaction Status Date / Time brimonidine [From Alphagan P] Allergy eye Verified 02/25/19 14:44 irritaion pilocarpine Allergy migraine Verified 02/25/19 14:44 ramipril Allergy Coughing Verified 02/25/19 14:44 Objective - Vital Signs Vital Signs: Vital Signs 02/26/19 02/26/19 02/26/19 11:15 15:15 20:00 Temperature 97.4 F 97.5 F Pulse Rate 90 90 Respiratory 20 18 18 Rate Blood Pressure 111/59 114/56 (mmHg) O2 Sat by Pulse 100 98 Oximetry 02/26/19 02/26/19 02/27/19 20:01 23:22 03:15 Temperature 97.3 F 97.6 F 97.3 F Pulse Rate 87 81 79 Respiratory 18 16 16 Rate Blood Pressure 126/60 128/57 124/60 (mmHg) O2 Sat by Pulse 99 96 97 Oximetry 02/27/19 02/27/19 06:47 07:15 Temperature 98.1 F Pulse Rate 88 Respiratory 18 20 Rate Blood Pressure 136/50 (mmHg) O2 Sat by Pulse 92 Oximetry - Intake and Output Intake and Output: Intake & Output 02/24/19 02/25/19 02/26/19 02/27/19 11:59 11:59 11:59 11:59 Intake Total 2482.4 1313 Balance 2482.4 1313 Weight 314 lb Intake: IV Fluids 1062.4 303 ceftriaxone 60 IVPB 100 100 ceftriaxone 100 Oral 1320 910 ADLs: Meal Record Start: 02/25/19 18: 32 Freq: DAILY@0900,1400,1800 Status: Active Protocol: Created 02/25/19 18:32 System (Rec: 02/25/19 18:32 System [id number]) Document 02/26/19 09:00 [id number] (Rec: 02/26/19 12:41 [id number] [email or web address]) Document 02/26/19 13:39 [id number] (Rec: 02/26/19 13:39 [id number] TELE-C03) Document 02/26/19 18:00 [id number] (Rec: 02/26/19 20:04 [id number] TELE-C09) Intake and Output Start: 02/25/19 14: 47 Freq: Status: Active Protocol: Created 02/25/19 14:48 System (Rec: 02/25/19 14:48 System [id number]) Intake and Output Start: 02/25/19 18: 32 Freq: DAILY@0600,1400,2200 Status: Active Protocol: Created 02/25/19 18:32 System (Rec: 02/25/19 18:32 System TELE-C15) Document 02/25/19 21:47 [id number] (Rec: 02/25/19 21:49 [id number] TELE-C11) Document 02/26/19 06:00 [id number] (Rec: 02/26/19 06:02 [id number] TELE-C09) Document 02/26/19 06:00 [id number] (Rec: 02/26/19 06:01 [id number] TELE-C35) Document 02/26/19 14:00 [id number] (Rec: 02/26/19 15:30 [id number] TELE-C03) Document 02/26/19 21:31 [id number] (Rec: 02/26/19 21:32 [id number] TELE-C09) Document 02/27/19 06:00 [id number] (Rec: 02/27/19 06:38 [id number] TELE-M18) Document 02/27/19 06:00 [id number] (Rec: 02/27/19 06:32 [id number] TELE-C09) - Physical Exam General Physical Exam Comment: Warm and well perfused, looks much improved. She is in no distress. General: No Cyanosis, No Anemia, No Jaundice, No Clubbing Lungs and Chest: Yes: Chest Expansion Full, Chest Expansion Symetrica, Percussion Note Resonant, Vessicular Breath Sounds. No: Crackles, Wheezes, Respiratory Distress, Use of Accessory Muscles Heart Rate and Rhythm: Regular JVP: Not Elevated Additional Cardiovascular: Yes: Normal Heart Sounds. No: Heart Murmur, Pedal Edema Abdominal Exam: Yes: Soft, Bowel Sounds Present. No: Distention, Hepatomegaly, Abdominal Tenderness, Guarding, Rebound Tenderness Results - Results Lab Results: Laboratory Results - last 24 hr 02/26/19 02/26/19 02/27/19 11:26 16:18 06:51 WBC 12.9 H RBC 4.21 Hgb 12.3 Hct 36 MCV 86 MCH 29 MCHC 34 RDW 15 Plt Count 214 MPV 10.0 Neut % (Auto) 70.2 Lymph % (Auto) 17.4 [place] % (Auto) 10.5 Eos % (Auto) 1.5 Baso % (Auto) 0.4 Absolute Neuts (auto) 9.0 H Absolute Lymphs (auto) 2.2 Absolute Monos (auto) 1.3 H Absolute Eos (auto) 0.2 Absolute Basos (auto) 0.1 Absolute Nucleated RBC 0.0 Nucleated RBC % 0.0 Sodium Potassium Chloride Carbon Dioxide Anion Gap BUN Creatinine Est GFR ( Amer) Est GFR (Non-Af Amer) BUN/Creatinine Ratio Glucose POC Glucose (mg/dL) 276 H 250 H Calcium Total Bilirubin Direct Bilirubin Indirect Bilirubin AST ALT Alkaline Phosphatase C-Reactive Protein Total Protein Albumin Globulin Albumin/Globulin Ratio 02/27/19 02/27/19 06:51 07:29 WBC RBC Hgb Hct MCV MCH MCHC RDW Plt Count MPV Neut % (Auto) Lymph % (Auto) [place] % (Auto) Eos % (Auto) Baso % (Auto) Absolute Neuts (auto) Absolute Lymphs (auto) Absolute Monos (auto) Absolute Eos (auto) Absolute Basos (auto) Absolute Nucleated RBC Nucleated RBC % Sodium 137 Potassium 3.2 L Chloride 105 Carbon Dioxide 25 Anion Gap 7 BUN 32 H Creatinine 1.10 H Est GFR ( Amer) 61.1 Est GFR (Non-Af Amer) 50.5 BUN/Creatinine Ratio 29.1 H Glucose 247 H POC Glucose (mg/dL) 234 H Calcium 8.8 Total Bilirubin 0.30 Direct Bilirubin 0.10 Indirect Bilirubin 0.2 L AST 21 ALT 22 Alkaline Phosphatase 133 H C-Reactive Protein 195.26 H Total Protein 6.4 Albumin 3.0 L Globulin 3.4 Albumin/Globulin Ratio 0.9 L Other Results/Reports: RUN DATE: 02/27/19 [facility] LAB LIVE PAGE 1 RUN TIME: [address] [place] [id number] Specimen Inquiry Name: IRMA TAPIA : [address]: Dorene Gtz MD Acct: [id number] Unit: [id number] AGE: 63 Location: [place] [address] Re02/26/19 SEX: F Status: ADM IN SPEC: [id number] PRINCE: 02/25/[address]: Rony Galvez MD REQ: [id number] RECD: 02/25/19 _ STATUS: RES OTHR DR: Franklyn Murphy MD SOURCE: URINE SPDESC: ORDERED: Urine Culture Procedure Result Reported Site Urine Culture Preliminary 02/26/19- 1158 ML Organism 1 ESCHERICHIA COLI [place] Count 50-75,000 (Many) CFU/ML * ML - Main Lab . Assessment - Problem List Assessment: Patient Problems Abdominal pain (Acute) Nausea and vomiting (Acute) Prerenal acute renal failure (Acute) Type 2 diabetes mellitus with hyperglycemia (Acute) UTI (urinary tract infection) (Acute) Essential hypertension (Chronic) Glaucoma, open angle (Chronic) History of Graves' disease (Chronic) Hyperlipidemia (Chronic) Microalbuminuria (Chronic) Morbid obesity with BMI of 50.0-59.9, adult (Chronic) Type 2 diabetes mellitus with proliferative diabetic retinopathy (Chronic) Plan: Abdominal pain (Acute) Nausea and vomiting (Acute)UTI She is feeling much better and looks more healthy than her labs. I am particularly concerned with her rising WBC, and her high CRP (195). I note her %neutrophils are coming down - this is reassuring. She is taking ceftriaxone for E. coli UTI. I want her to have another 24 hours of IV ceftriaxone, results from the C and S of the urine and a clear signal that her CRP is coming down before discharge. Prerenal acute renal failure (Acute) This is improving. I note she is hypokalemic. Her acidosis has improved Type 2 diabetes mellitus with hyperglycemia (Acute) Her insulin resistance remains - a sign of ongoing inflammation/infection. I will increase her basal insulin Stable Essential hypertension (Chronic) Glaucoma, open angle (Chronic) History of Graves' disease (Chronic) Hyperlipidemia (Chronic) Microalbuminuria (Chronic) Morbid obesity with BMI of 50.0-59.9, adult (Chronic) Type 2 diabetes mellitus with proliferative diabetic retinopathy (Chronic) Irma Loweryabhay is disappointed at my recommendation she stays an extra day for continued IV antibacterial therapy due to indications that she has continued infection. I explained the above to her and she is accepting of this decision. I am hoping we will have the information required tomorrow permitting discharge.
[2019-02-27] MEDS ORDERED: Insulin GLARGINE(*) 1 UNITS UNIT SUBCUT ONE (10:15)
[2019-02-27] MEDS: Aspirin EC TAB* 81 MG TAB.EC PO SCH (21:14)
[2019-02-27] MEDS: Potassium Chlor TAB* 20 MEQ TAB.ER PO SCH (21:14)
[2019-02-27] MEDS: cefTRIAXone(*) 1 GM in NS 0.9% 50 ML* 50 ML IVPB SCH (21:15)
[2019-02-28 06:08] LABS: ABS Basophils 0.1 10^3/ul (0-0.2); ABS Eosinophils 0.2 10^3/ul (0-0.6); ABS Lymphocytes 3.2 10^3/ul (1.0-4.8); ABS Monocytes 1.5 10^3/ul (0-0.8); ABS Neutrophils 6.8 10^3/ul (1.5-7.7); Eosinophil % 1.7 %; Hematocrit 34 % (35-47); Hemoglobin 11.6 g/dL (12.0-16.0); Lymphocyte % 27.1 %; Mean Corpuscular HGB Conc 34 g/dL (31-36); Mean Corpuscular Hemoglobin 29 pg (27-31); Mean Corpuscular Volume 86 fL (80-97); Platelet Count 221 10^3/uL (150-450); Red Blood Count 4.02 10^6 /uL (3.70-4.87); Red Cell Distribution Width 15 % (10-15); White Blood Count 11.8 10^3/uL (3.5-10.8)
[2019-02-28] MEDS: Heparin VIAL(*) 5000 UNITS/ML VIAL (FIVE THOUSAND) SUBCUT SCH (06:18)
[2019-02-28 06:25] LABS: Albumin 2.8 g/dL (3.2-5.2); Albumin/Globulin Ratio 0.9 (1-3); C Reactive Protein 126.74 mg/L (<8.01); Calcium 8.6 mg/dL (8.6-10.3); EGFR African American 88.2 (>60); EGFR Non-African American 72.9 (>60); Indirect Bilirubin 0.1 mg/dL (0.3-1.0); Total Bilirubin 0.3 mg/dL (0.2-1.0); Total Protein 5.8 g/dL (6.4-8.9)
[2019-02-28 08:05] VITALS: BP 140/61
[2019-02-28] MEDS ORDERED: Insulin GLARGINE(*) 1 UNITS UNIT SUBCUT SCH (09:00)
[2019-02-28] MEDS: Cholecalciferol TAB* 1000 UNITS PO SCH (09:09)
[2019-02-28] MEDS: Cyanocobalamin TAB* 500 MCG PO SCH (09:09)
[2019-02-28] MEDS: Atorvastatin* 10 MG TAB PO SCH (09:10)
[2019-02-28] MEDS: Potassium Chlor TAB* 20 MEQ TAB.ER PO SCH (09:10)
[2019-02-28] MEDS: CMCS:Dorzolamide/Timolol OPTH (NF) 10 ML BOT RIGHT EYE SCH (09:10)
[2019-02-28] MEDS: Insulin LISPRO* 1 UNITS UNIT SUBCUT SCH ×2 (09:12→09:13)
--- NOTE | 2019-02-28 09:29 | PN ---
Subjective - Subjective Reason for Note: Discharge Note History: Discharge progress note She is feeling better Active Problems: Active Problems Abdominal pain (Acute) R10.9 Nausea and vomiting (Acute) R11.2 Prerenal acute renal failure (Acute) N17.9 Type 2 diabetes mellitus with hyperglycemia (Acute) E11.65 UTI (urinary tract infection) (Acute) Essential hypertension (Chronic) I10 Glaucoma, open angle (Chronic) H40.10X0 History of Graves' disease (Chronic) Z86.39 Hyperlipidemia (Chronic) E78.5 Microalbuminuria (Chronic) R80.9 Morbid obesity with BMI of 50.0-59.9, adult (Chronic) E66.01, Z68.43 Type 2 diabetes mellitus with proliferative diabetic retinopathy (Chronic) E11.3599 Current Medications: Current Medications Acetaminophen (Tylenol Tab*) 650 mg PO Q4H PRN PRN Reason: HEADACHE Aspirin (Aspirin Ec Tab*) 81 mg PO BEDTIME [facility] Last Admin: 02/27/19 21:14 Dose: 81 mg Atorvastatin Calcium (Lipitor*) 10 mg PO DAILY [facility] Last Admin: 02/28/19 09:10 Dose: 10 mg Cholecalciferol (Vitamin D Tab*) 1,000 units PO DAILY [facility] Last Admin: 02/28/19 09:09 Dose: 1,000 units Cyanocobalamin (Vitamin B12 Tab*) 1,000 mcg PO DAILY [facility] Last Admin: 02/28/19 09:09 Dose: 1,000 mcg Dextrose (Dextrose 50% Vial 50 Ml*) 25 ml IV PUSH .FOR FS < 60 - SS PRN PRN Reason: FS < 60 Dorzolamide/Timolol (Cosopt (Nf)) 1 drop RIGHT EYE BID [facility]; Protocol Last Admin: 02/28/19 09:10 Dose: 1 drop Heparin Sodium (Porcine) (Heparin Vial(*)) 5,000 units SUBCUT Q8HR [facility] Last Admin: 02/28/19 06:18 Dose: 5,000 units Ceftriaxone Sodium 1 gm/ (Sodium Chloride) 50 mls @ 100 mls/hr IVPB Q24H [facility] Last Admin: 02/27/19 21:15 Dose: 100 mls/hr Insulin Glargine (Lantus(*)) 35 units SUBCUT Q24H [facility] Last Admin: 02/28/19 09:11 Dose: 35 units Insulin Human Lispro (Humalog*) 0 units SUBCUT [facility]; Protocol Last Admin: 02/28/19 09:12 Dose: 6 units Insulin Human Lispro (Humalog*) [address] [facility]; Protocol Last Admin: 02/28/19 09:13 Dose: 1 units Ondansetron HCl (Zofran Inj*) 4 mg IV Q4H PRN PRN Reason: NAUSEA/VOMITING Potassium Chloride (Klor Con Er Tab*) 20 meq PO BID [facility] Last Admin: 02/28/19 09:10 Dose: 20 meq Home Medications: Home Medications Medication Instructions Recorded Confirmed Type Aspirin EC TAB* [Ecotrin EC Low 81 mg PO BEDTIME 08/10/15 02/25/19 History Dose*] Cyanocobalamin TAB* [Vitamin B12 1,000 mcg PO DAILY 08/10/15 02/25/19 History TAB*] Dorzolamide/Timolol OPTH (NF) 1 drop RIGHT EYE BID 08/10/15 02/25/19 History [Cosopt (NF)] Simvastatin TAB(NF) [Zocor(NF)] 20 mg PO DAILY 08/10/15 02/25/19 History glipiZIDE TAB* [Glucotrol TAB*] 5 mg PO QAM 08/10/15 02/25/19 History glipiZIDE TAB* [Glucotrol TAB*] 10 mg PO QPM 08/10/15 02/25/19 History metFORMIN* [Glucophage*] 1,000 mg PO BID 08/10/15 02/25/19 History Cholecalciferol (Vitamin D3) 1,000 unit PO DAILY 02/25/19 02/25/19 History [Vitamin D3] Losartan TAB* [Cozaar TAB*] 100 mg PO DAILY 02/25/19 02/25/19 History glipiZIDE TAB* [Glucotrol TAB*] 5 mg PO .OVERNIGHT 02/25/19 02/25/19 History Allergies: Allergies Allergy/AdvReac Type Severity Reaction Status Date / Time brimonidine [From Alphagan P] Allergy eye Verified 02/25/19 14:44 irritaion pilocarpine Allergy migraine Verified 02/25/19 14:44 ramipril Allergy Coughing Verified 02/25/19 14:44 Objective - Vital Signs Vital Signs: Vital Signs 02/27/19 02/27/19 02/27/19 11:15 19:15 20:55 Temperature 97.7 F 97.4 F Pulse Rate 87 86 Respiratory 18 17 16 Rate Blood Pressure 117/59 133/55 (mmHg) O2 Sat by Pulse 94 96 Oximetry 02/27/19 02/28/19 02/28/19 23:14 03:15 06:44 Temperature 97.4 F Pulse Rate 78 77 Respiratory 16 16 16 Rate Blood Pressure 136/70 122/63 (mmHg) O2 Sat by Pulse 100 94 Oximetry 02/28/19 02/28/19 06:58 07:15 Temperature 98.3 F Pulse Rate 78 Respiratory 16 20 Rate Blood Pressure 140/61 (mmHg) O2 Sat by Pulse 97 Oximetry - Intake and Output Intake and Output: Intake & Output 02/25/19 02/26/19 02/27/19 02/28/19 11:59 11:59 11:59 11:59 Intake Total 2482.4 1553 1670 Balance 2482.4 1553 1670 Weight 314 lb Intake: IV Fluids 1062.4 303 ceftriaxone 60 IVPB 100 100 100 ceftriaxone 100 100 Oral 1320 1150 1570 ADLs: Meal Record Start: 02/25/19 18: 32 Freq: DAILY@0900,1400,1800 Status: Active Protocol: Created 02/25/19 18:32 System (Rec: 02/25/19 18:32 System TELE-C15) Document 02/26/19 09:00 [id number] (Rec: 02/26/19 12:41 [id number] TELE-M04) Document 02/26/19 13:39 [id number] (Rec: 02/26/19 13:39 [id number] TELE-C03) Document 02/26/19 18:00 [id number] (Rec: 02/26/19 20:04 [id number] TELE-C09) Document 02/27/19 09:00 [id number] (Rec: 02/27/19 11:39 [id number] TELE-C05) Document 02/27/19 13:51 [id number] (Rec: 02/27/19 13:52 [id number] TELE-C05) Document 02/27/19 18:00 [id number] (Rec: 02/27/19 18:39 [id number] TELE-C11) Intake and Output Start: 02/25/19 14: 47 Freq: Status: Active Protocol: Created 02/25/19 14:48 System (Rec: 02/25/19 14:48 System [id number]) Intake and Output Start: 02/25/19 18: 32 Freq: DAILY@0600,1400,2200 Status: Active Protocol: Created 02/25/19 18:32 System (Rec: 02/25/19 18:32 System TELE-C15) Document 02/25/19 21:47 [id number] (Rec: 02/25/19 21:49 [id number] TELE-C11) Document 02/26/19 06:00 [id number] (Rec: 02/26/19 06:02 [id number] TELE-C09) Document 02/26/19 06:00 [id number] (Rec: 02/26/19 06:01 [id number] TELE-C35) Document 02/26/19 14:00 [id number] (Rec: 02/26/19 15:30 [id number] TELE-C03) Document 02/26/19 21:31 [id number] (Rec: 02/26/19 21:32 [id number] TELE-C09) Document 02/27/19 06:00 [id number] (Rec: 02/27/19 06:38 [id number] TELE-M18) Document 02/27/19 06:00 [id number] (Rec: 02/27/19 06:32 [id number] TELE-C09) Document 02/27/19 22:00 [id number] (Rec: 02/27/19 22:13 [id number] TELE-C10) Document 02/28/19 06:00 [id number] (Rec: 02/28/19 07:02 [id number] TELE-C10) Results - Results Lab Results: Laboratory Results - last 24 hr 02/27/19 02/27/19 02/28/19 12:08 16:41 05:11 WBC 11.8 H RBC 4.02 Hgb 11.6 L Hct 34 L MCV 86 MCH 29 MCHC 34 RDW 15 Plt Count 221 MPV 10.0 Neut % (Auto) 58.0 Lymph % (Auto) 27.1 Green % (Auto) 12.7 Eos % (Auto) 1.7 Baso % (Auto) 0.5 Absolute Neuts (auto) 6.8 Absolute Lymphs (auto) 3.2 Absolute Monos (auto) 1.5 H Absolute Eos (auto) 0.2 Absolute Basos (auto) 0.1 Absolute Nucleated RBC 0.0 Nucleated RBC % 0.0 Sodium Potassium Chloride Carbon Dioxide Anion Gap BUN Creatinine Est GFR ( Amer) Est GFR (Non-Af Amer) BUN/Creatinine Ratio Glucose POC Glucose (mg/dL) 293 H 272 H Calcium Total Bilirubin Direct Bilirubin Indirect Bilirubin AST ALT Alkaline Phosphatase C-Reactive Protein Total Protein Albumin Globulin Albumin/Globulin Ratio 02/28/19 02/28/19 05:11 07:45 WBC RBC Hgb Hct MCV MCH MCHC RDW Plt Count MPV Neut % (Auto) Lymph % (Auto) Green % (Auto) Eos % (Auto) Baso % (Auto) Absolute Neuts (auto) Absolute Lymphs (auto) Absolute Monos (auto) Absolute Eos (auto) Absolute Basos (auto) Absolute Nucleated RBC Nucleated RBC % Sodium 140 Potassium 3.0 L Chloride 107 Carbon Dioxide 26 Anion Gap 7 BUN 24 Creatinine 0.80 Est GFR ( Amer) 88.2 Est GFR (Non-Af Amer) 72.9 BUN/Creatinine Ratio 30.0 H Glucose 226 H POC Glucose (mg/dL) 223 H Calcium 8.6 Total Bilirubin 0.30 Direct Bilirubin 0.20 H Indirect Bilirubin 0.1 L AST 13 ALT 18 Alkaline Phosphatase 112 H C-Reactive Protein 126.74 H Total Protein 5.8 L Albumin 2.8 L Globulin 3.0 Albumin/Globulin Ratio 0.9 L Assessment - Problem List Assessment: Patient Problems Abdominal pain (Acute) Nausea and vomiting (Acute) Prerenal acute renal failure (Acute) Type 2 diabetes mellitus with hyperglycemia (Acute) UTI (urinary tract infection) (Acute) Essential hypertension (Chronic) Glaucoma, open angle (Chronic) History of Graves' disease (Chronic) Hyperlipidemia (Chronic) Microalbuminuria (Chronic) Morbid obesity with BMI of 50.0-59.9, adult (Chronic) Type 2 diabetes mellitus with proliferative diabetic retinopathy (Chronic) Plan: She is ready for discharge - no nausea/vomiting, diarrhea. Her abdomen is not painful and she has no urinary symptoms. Her labs are all improving. The UTI is sensitive to most antibiotics and I will discharge her on nitrofurantoin to avoid a broad spectrum agent. See discharge summary (dictated)
--- NOTE | 2019-02-28 14:51 | DS ---
DISCHARGE SUMMARY: DATE OF ADMISSION: 02/25/19 DATE OF DISCHARGE: 02/28/19 DISCHARGE DIAGNOSES: 1. Gastroenteritis. 2. Urinary tract infection. 3. Severe dehydration with prerenal azotemia and electrolyte disturbances. 4. Type 2 diabetes mellitus, out of control. COMORBIDITIES: Nausea, vomiting, abdominal pain. SECONDARY DIAGNOSES: 1. Type 2 diabetes mellitus, on oral agents. 2. Morbid obesity, body mass index greater than 50. 3. Microalbuminuria. 4. Hyperlipidemia. 5. History of Graves disease. 6. Open angle glaucoma. 7. Essential hypertension. DISPOSITION: Home. CONDITION: Recovered. HISTORY: Irma Tapia is a 63-year-old white female. Her presentation is documented in DA Stokes's detailed admitting history and physical. In short, she presented with nausea, vomiting, abdominal pain, and headache. She ate at a [employer] buffet 5 days before entry and 3 hours after this developed nausea and vomiting, which lasted 3 days. She also had an episode of diarrhea on day 3. Abdominal pain was throughout the entire abdomen. She was unable to keep up with fluids and electrolytes. She had sore throat and dry mouth, had some chills and sweats the day before admission. INITIAL EXAMINATION: Temperature 97.8, heart rate 97, respirations 20, oxygen saturation 96% on room air, blood pressure 106/59. She is fatigued, but in no acute distress. Abdomen: Hypoactive bowel sounds. Soft, nontender to palpation. No other focal signs. INITIAL DIAGNOSTIC STUDIES: White count 14.4, sodium 134, anion gap 12, BUN 47 , creatinine 3.22, glucose 398, lactic acid 1.6, calcium 8.4, magnesium's 1.8. She was admitted with a diagnosis of sepsis with tachycardia and leukocytosis. She was given IV fluids and IV antibiotics. Urinalysis suggested urinary infection and she was treated empirically with IV ceftriaxone. It was noted she had acute kidney injury. FURTHER INVESTIGATIONS: On presentation, hemoglobin 12.3, hematocrit 37, platelets 201, percent neutrophils 86.3. Venous blood gas; pH 7.38, PCO2 of 32 , PO2 of 55, bicarbonate 20.7. Chemistry as above. Sodium 134, potassium 3.5, chloride 102, bicarbonate 20, anion gap 12, BUN 47, creatinine 3.22, calcium 8.4 , magnesium 1.8. ALP 160, otherwise LFTs were normal. Lipase 13. TSH 4.69. Urinalysis 2+ protein, 2+ blood, 1+ bilirubin, 2+ esterase. Microbiology: Urine grew E. coli that was sensitive to all antibiotics aside from ampicillin. Imaging was not performed. EKG was not performed. HOSPITAL COURSE: Shortly after admission to the hospital, the abdominal pain, nausea and vomiting, abated. She started to feel better by the next day in the hospital. Her lab work during the hospitalization, her white count came down to 11.8 on the day of discharge. C-reactive protein on 02/27/19 was 195.26 and on the day of discharge 126.74. Today, she is feeling completely better. She has been walking around the floor. Her appetite is recovered. No fevers or sweats. She is a little weak, but otherwise she is doing well. She has no nausea, vomiting, abdominal pain, and has had a small bowel movement which was normal. She has had no problems with the antibiotic treatment. PHYSICAL EXAMINATION ON THE DAY OF DISCHARGE: Vital Signs: Temperature 98.3, pulse 78, respirations 20, oxygen saturation 97% on room air, blood pressure 140 /61. She has no cyanosis, anemia, jaundice, clubbing, or lymphadenopathy. She is warm and well perfused. Cardiovascular System: Pulse was regular, normal character and volume. Venous pressure not elevated. [place] beat not displaced. Heart sounds normal. No added sounds or murmurs. No pedal edema. Respiratory System: Chest is clear. Abdomen: No distention, masses, tenderness, or organomegaly. Bowel sounds are present. She is alert and oriented, moving arms and legs normally, and is walking around the [place] independently. INVESTIGATIONS ON THE DAY OF DISCHARGE: Chemistry: Potassium remains low at 3 , glucose was 223. Bilirubin 0.2, alkaline phosphatase 112. Total protein 5.8 , albumin 2.8. ASSESSMENT AND PLAN: 1. Acute gastroenteritis is followed eating a meal at a restaurant. She developed severe dehydration. She improved with IV fluids and has no symptoms of this remaining on the day of discharge. 2. Acute prerenal azotemia. This has also recovered with IV fluids and her renal function has returned to baseline. 3. Urinary tract infection. She had sepsis at presentation which probably was due to the second infection. This is now recovered. She is going to take nitrofurantoin 100 mg twice daily for another 5 days. 4. Type 2 diabetes mellitus. This has been uncontrolled. I think this will come under control now that she can restart her metformin. I have stopped her insulin and discharged her back on oral agents. 5. Other comorbidities, these are not exacerbated. She will visit my office for a transition of care visit in the first half of next week. DISCHARGE MEDICATIONS: 1. Nitrofurantoin 100 mg twice daily. 2. Simvastatin 20 mg q.h.s. 3. Cosopt 1 drop right eye twice daily. 4. Cyanocobalamin 1000 mcg p.o. daily. 5. Aspirin 81 mg daily. 6. Glipizide 10 mg b.i.d. 7. Metformin 1000 mg twice daily. She will follow up at my office within the next 3 days. [id number]/[facility] #: [id number] MTDD
== END 2019-02-28 11:06 | disposition home or self-care (01) | DRG 872 ==
LOC: ED 14:39 → MEDTELE 17:30 → OBSVTOIN 02-26 14:00
PROVIDERS: ADMIT Internal Medicine; ATTEND Internal Medicine
DX: A41.9 Sepsis, unspecified organism (principal); N39.0 Urinary tract infection, site not specified; Z68.43 Body mass index [BMI] 50.0-59.9, adult; N17.9 Acute kidney failure, unspecified; E87.2 Acidosis; K52.9 Noninfective gastroenteritis and colitis, unspecified; E86.0 Dehydration; R79.89 Other specified abnormal findings of blood chemistry; E11.65 Type 2 diabetes mellitus with hyperglycemia; R80.9 Proteinuria, unspecified; E11.21 Type 2 diabetes mellitus with diabetic nephropathy; E88.81 Metabolic syndrome and other insulin resistance; B96.20 Unspecified Escherichia coli [E. coli] as the cause of diseases classified elsewhere; E87.6 Hypokalemia; E11.3599 Type 2 diabetes mellitus with proliferative diabetic retinopathy without macular edema, unspecified eye; M19.012 Primary osteoarthritis, left shoulder; M19.011 Primary osteoarthritis, right shoulder; E83.42 Hypomagnesemia; E78.5 Hyperlipidemia, unspecified; E11.39 Type 2 diabetes mellitus with other diabetic ophthalmic complication; H40.10X0 Unspecified open-angle glaucoma, stage unspecified; H42 Glaucoma in diseases classified elsewhere; I10 Essential (primary) hypertension; Z79.82 Long term (current) use of aspirin; Z79.84 Long term (current) use of oral hypoglycemic drugs; E66.01 Morbid (severe) obesity due to excess calories; Z98.41 Cataract extraction status, right eye; Z98.42 Cataract extraction status, left eye; Z88.8 Allergy status to other drugs, medicaments and biological substances; Z82.49 Family history of ischemic heart disease and other diseases of the circulatory system; Z83.3 Family history of diabetes mellitus; Z82.0 Family history of epilepsy and other diseases of the nervous system; Z72.89 Other problems related to lifestyle; Z80.3 Family history of malignant neoplasm of breast
CPT/HCPCS: 36415; 80048; 80053; 80076; 81003; 81015; 82803; 83605; 83690; 83735; 84443; 85025; 86140; 87077; 87086; 87186; 99211; 99284; A9270-GY; G0378; G0463; J0696; J1644; J3475